=== PATIENT | male | born 1980 | race Two or more races ===

== ENCOUNTER 2017-07-21 00:42 | Emergency (ER) | payer SELFPAY ==
[2017-07-21] MEDS: diphenhydrAMINE HCL 25 MG CAPSULE PO (01:19)
[2017-07-21] MEDS: DEXAMETHASONE SOD PHOS 4 MG/ML VIAL IM (01:19)
== END 2017-07-21 01:37 | disposition home or self-care (01) ==
LOC: ER 00:42
DX: L23.7 Allergic contact dermatitis due to plants, except food (principal)
CPT/HCPCS: 96372; 99283; J1100; Q0163

== ENCOUNTER 2018-07-07 19:40 | Emergency (ER) | payer OTHER, BC ==
[~2018-07-07] VITALS: Ht 167.6 cm; Wt 90.7 kg
[~2018-07-07 19:40] MED LIST: PRED20TA PO
[2018-07-07 20:10] VITALS: BP 151/103
--- NOTE | 2018-07-07 21:39 | PHYS DOC ---
Past Medical History Past Medical History: Other Additional Past Medical Histor: SLEEP APNEA Past Surgical History: No Surgical History Additional Information: non smoker Alcohol Use: None Drug Use: None Adult General Chief Complaint Chief Complaint: SHOULDER INJURY HPI HPI Patient is a 38-year-old male who presents with right humerus and shoulder pain for 2 days. Patient states that he has not had any trauma to the arm. Patient denies any associated symptoms. The patient states his pain is 10 out of 10 and throbs and has sharp pain. Patient has tried Tylenol at home but it is not working. Review of Systems Review of Systems Constitutional: Denies fever or chills [] Eyes: Denies change in visual acuity, redness, or eye pain [] HENT: Denies nasal congestion or sore throat [] Respiratory: Denies cough or shortness of breath [] Cardiovascular: No additional information not addressed in HPI [] GI: Denies abdominal pain, nausea, vomiting, bloody stools or diarrhea [] : Denies dysuria or hematuria [] Musculoskeletal: Denies back pain. Reports shoulder pain and R upper arm pain. Integument: Denies rash or skin lesions [] Neurologic: Denies headache, focal weakness or sensory changes [] Endocrine: Denies polyuria or polydipsia [] Complete systems were reviewed and found to be within normal limits, except as documented in this note. Current Medications Current Medications Current Medications Medications (Trade) Dose Ordered Sig/[facility] Start Time Stop Time Status Last Admin Dose Admin Ketorolac Tromethamine (Toradol 30mg Vial) 30 mg 1X ONCE 07/07/18 21:45 07/07/18 21:46 DC 07/07/18 22:14 30 MG Allergies Allergies Allergies Coded Allergies Type Severity Reaction Last Updated Verified No Known Drug Allergies 07/21/17 No Physical Exam Physical Exam Constitutional: Well developed, well nourished, no acute distress, non-toxic appearance. [] HENT: Normocephalic, atraumatic, bilateral external ears normal, oropharynx moist, no oral exudates, nose normal. [] Eyes: PERRLA, EOMI, conjunctiva normal, no discharge. [] Neck: Normal range of motion, no tenderness, supple, no stridor. [] Cardiovascular:Heart rate regular rhythm, no murmur [] Lungs & Thorax: Bilateral breath sounds clear to auscultation [] Abdomen: Bowel sounds normal, soft, no tenderness, no masses, no pulsatile masses. [] Skin: Warm, dry, no erythema, no rash. [] Back: No tenderness, no CVA tenderness. [] Extremities: Tenderness to R humerus, no cyanosis, no clubbing, ROM reduced in R shoulder, no edema. [] Neurologic: Alert and oriented X 3, normal motor function, normal sensory function, no focal deficits noted. [] Psychologic: Affect normal, judgement normal, mood normal. [] Current Patient Data Vital Signs Vital Signs Date Time Temp Pulse Resp B/P (MAP) Pulse Ox O2 Delivery O2 Flow Rate FiO2 07/07/18 20:10 98.4 93 20 151/103 (119) 97 Room Air 98.4 EKG EKG [] Radiology/Procedures Radiology/Procedures []PATIENT: AALIYAH VILLARREAL DACCOUNT: [id number]#: [id number] : 1980 LOCATION: ER AGE: 38 SEX: M EXAM STATUS: REG ER ORD. PHYSICIAN: TONY LR APRN REASON: shoulder pain, reduced rom PROCEDURE: HUMERUS LEFT EXAM: Left humerus, 2 views. HISTORY: Pain. COMPARISON: None. FINDINGS: 2 views of the left humerus are obtained. There is no fracture, dislocation or subluxation. There is benign curvilinear sclerosis within the distal humeral metaphysis. There is minimal degenerative change involving the acromioclavicular joint and slight acromioclavicular joint vacuum phenomenon. IMPRESSION: No acute osseous finding. Electronically signed by: Moni Gonzales MD (07/07/2018 9:57 PM) [facility] PATIENT: AALIYAH VILLARREAL ACCOUNT: [id number] : 1980 LOCATION: ER AGE: 38 SEX: M EXAM STATUS: REG ER ORD. PHYSICIAN: TONY LR APRN REASON: shoulder pain, reduced rom PROCEDURE: SHOULDER 2+V LEFT EXAM: Left shoulder, 3 views. HISTORY: Pain. COMPARISON: None. FINDINGS: 3 views of the left shoulder obtained. There is no fracture, dislocation or subluxation. 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 IMPRESSION: No acute osseous finding. Electronically signed by: Moni Gonzales MD (07/07/2018 9:56 PM) [facility] Course & Med Decision Making Course & Med Decision Making Pertinent Labs and Imaging studies reviewed. (See chart for details) Discussed plan of care with patient. Will get x-ray and pain medication. Patient is agreeable. X-rays are negative. Will discharge home to follow up with ortho. Alexander Disclaimer Dragon Disclaimer This electronic medical record was generated, in whole or in part, using a voice recognition dictation system. Departure Departure Impression: Primary Impression: Shoulder pain, acute Disposition: 01 HOME, SELF-CARE Condition: STABLE Referrals: UNKNOWN PCP NAME (PCP) LIZETTE NEWTON II, MD Additional Instructions: If pain continues please follow up with orthopedics for further workup. Problem Qualifiers Primary Impression: Shoulder pain, acute Laterality: right Qualified Codes: M25.511 - Pain in right shoulder TONY LR APRN July 07, 2018 21:39
[2018-07-07] MEDS ORDERED: KETOROLAC 30 MG/ML VIAL. IM ONE (21:45)
--- NOTE | 2018-07-07 22:00 | RAD ---
EXAM: Left shoulder, 3 views. HISTORY: Pain. COMPARISON: None. FINDINGS: 3 views of the left shoulder obtained. There is no fracture, dislocation or subluxation. 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 IMPRESSION: No acute osseous finding. Electronically signed by: Moni Gonzales MD (07/07/2018 9:56 PM) [facility]
--- NOTE | 2018-07-07 22:00 | RAD ---
EXAM: Left humerus, 2 views. HISTORY: Pain. COMPARISON: None. FINDINGS: 2 views of the left humerus are obtained. There is no fracture, dislocation or subluxation. There is benign curvilinear sclerosis within the distal humeral metaphysis. There is minimal degenerative change involving the acromioclavicular joint and slight acromioclavicular joint vacuum phenomenon. IMPRESSION: No acute osseous finding. Electronically signed by: Moni Gonzales MD (07/07/2018 9:57 PM) [facility]
== END 2018-07-07 22:59 | disposition home or self-care (01) ==
LOC: ER 19:40
DX: M25.511 Pain in right shoulder (principal)
CPT/HCPCS: 73030; 73060; 96372; 99284; J1885

== ENCOUNTER 2019-02-26 03:19 | Emergency (ER) | payer BC, OTHER ==
[~2019-02-26] VITALS: Ht 167.6 cm; Wt 93.0 kg
[2019-02-26 03:38] VITALS: BP 134/90
--- NOTE | 2019-02-26 04:14 | PHYS DOC ---
Past Medical History Past Medical History: Other Additional Past Medical Histor: SLEEP APNEA Past Surgical History: Other Additional Past Surgical Histo: Nasal Surgery Alcohol Use: None Drug Use: None Adult General Chief Complaint Chief Complaint: DENTAL PROBLEM [facility] HPI 39-year-old male presents to the emergency department with complaints of toothache. Patient states he went to the dentist 1 week ago received a deep cleaning. He states no fever, nausea, vomiting, diarrhea however was increasing pain in his mouth today. He has an appointment with dentist today. Patient should states this is however not until 5:30 PM. Nothing makes his symptoms worse, nothing makes his symptoms better. Patients tried [id number]-[id number] medications without improvement. All other ROS negative unless documented in HPI Review of Systems Review of Systems See Above Current Medications Current Medications Current Medications Medications (Trade) Dose Ordered Sig/Jacqui Start Time Stop Time Status Last Admin Dose Admin Bupivacaine HCl (Sensorcaine Mpf 0.5%) 30 ml 1X ONCE 02/26/19 04:15 02/26/19 04:16 02/26/19 04:06 30 ML Tramadol HCl (Ultram) 50 mg 1X ONCE 02/26/19 04:15 02/26/19 04:16 02/26/19 04:11 50 MG Allergies Allergies Allergies Coded Allergies Type Severity Reaction Last Updated Verified No Known Drug Allergies 07/21/17 No Physical Exam Physical Exam See Above Constitutional: Well developed, well nourished, no acute distress, non-toxic appearance. [] HENT: Normocephalic, atraumatic, bilateral external ears normal, oropharynx moist, no oral exudates, nose normal. Gingiva evaluated without evidence of acute infection, pain appreciated to posterior molar upper/lower[] Eyes: PERRLA, EOMI, conjunctiva normal, no discharge. [] Neck: Normal range of motion, no tenderness, supple, no stridor. [] Cardiovascular:Heart rate regular rhythm, no murmur [] Skin: Warm, dry, no erythema, no rash. [] Extremities: No tenderness, no edema. [] Neurologic: Alert and oriented X 3, no focal deficits noted. [] Psychologic: Affect normal, judgement normal, mood normal. [] Current Patient Data Vital Signs Vital Signs Date Time Temp Pulse Resp B/P (MAP) Pulse Ox O2 Delivery O2 Flow Rate FiO2 02/26/19 04:11 Room Air 02/26/19 03:38 98.3 109 17 134/90 (105) 97 98.3 EKG EKG [] Radiology/Procedures Radiology/Procedures [] Course & Med Decision Making Course & Med Decision Making Pertinent Labs and Imaging studies reviewed. (See chart for details) []39-year-old male presents to the emergency department with complaints of toothache. Patient states he went to the dentist 1 week ago received a deep cleaning. He states no fever, nausea, vomiting, diarrhea however was increasing pain in his mouth today. He has an appointment with dentist today. Patient should states this is however not until 5:30 PM. Nothing makes his symptoms worse, nothing makes his symptoms better. Patients tried bxso-rwr-xeiqxvx medications without improvement. 4 cc of bupivicaine used for dental block of superior/inferior alveolar nerve block Tramadol po x 1 Recommend follow up with PCP/Dentist as scheduled today Return precautions provided No evidence of acute infection appreciated Dragon Disclaimer Dragon Disclaimer This electronic medical record was generated, in whole or in part, using a voice recognition dictation system. Departure Departure Impression: Primary Impression: Pain, dental Disposition: 01 HOME, SELF-CARE Condition: IMPROVED Referrals: SHRUTHI WALTER MD (PCP) Patient Instructions: Dental Pain, [id number] Additional Instructions: Recommend follow up with PCP 3 - 5 days Return to the ER with worsening symptoms, intractable pain, fever, altered mental status Tylenol/Motrin as needed for pain Recommend following up with Dentist today Tramadol 50mg PO x 1 given in ER for pain SUNNY PARKS MD Feb 26, 2019 04:13
[2019-02-26] MEDS ORDERED: BUPIVACAINE MPF 0.5% 30 ML VIAL. INJ ONE (04:15)
[2019-02-26] MEDS ORDERED: traMADol 50 MG TABLET PO ONE (04:15)
== END 2019-02-26 04:20 | disposition home or self-care (01) ==
LOC: ER 03:19
DX: K08.89 Other specified disorders of teeth and supporting structures (principal)
CPT/HCPCS: 64400; 99284; J3490

== ENCOUNTER 2020-07-11 17:26 | Emergency (ER) | payer BC, MEDICAID ==
[~2020-07-11] VITALS: Ht 167.6 cm; Wt 102.2 kg
[2020-07-11 17:58] VITALS: BP 142/84
[2020-07-11] MEDS ORDERED: predniSONE 10 MG TABLET PO ONE (19:15)
[2020-07-11] MEDS ORDERED: PRED20TA PO (19:27)
[2020-07-11] MEDS ORDERED: CLOT15CR23 TP (19:27)
--- NOTE | 2020-07-11 19:27 | ED.ADGEN ---
Past Medical History Past Medical History: Other Additional Past Medical Histor: SLEEP APNEA Past Surgical History: Other Additional Past Surgical Histo: Nasal Surgery Smoking Status: Current Every Day Smoker Additional Information: 0.5 PPD Alcohol Use: Rarely Drug Use: None General Adult EDM: Chief Complaint: SKIN PROBLEM HPI: HPI: Patient is a 40 year old male, who presents emergency department with complaints of a red, itchy, rash to both of his arms, his neck, and spreading to his face for last 2 days. Patient denies any known cause. He denies any fever, cough, shortness of breath, nausea, vomiting, diarrhea, abdominal pain, chest pain, sore throat, or wheezing. Patient denies any new medications, detergents, environmental exposures, or foods. Patient states he does have a indoor/outdoor cat that does come in and out of the house frequently. He currently denies any pain. Patient reports he has tried applying calamine lotion with little relief. He also complains of a rash in his left groin that has been there for several weeks but denies any complaints with that. Review of Systems: Review of Systems: Complete ROS is negative unless otherwise noted in HPI. Current Medications: Current Medications Medications (Trade) Dose Ordered Sig/[facility] Start Time Stop Time Status Last Admin Dose Admin Prednisone (Prednisone) 50 mg 1X ONCE 07/11/20 19:15 07/11/20 19:16 DC 07/11/20 19:20 50 MG Allergies: Allergies: Allergies Coded Allergies Type Severity Reaction Last Updated Verified No Known Drug Allergies 07/21/17 No Physical Exam: PE: See Above Constitutional: Well developed, well nourished, no acute distress, non-toxic appearance. [] HENT: Normocephalic, atraumatic, bilateral external ears normal, nose normal. [] Eyes: PERRLA, EOMI, conjunctiva normal, no discharge. [] Neck: Normal range of motion, no stridor. [] Cardiovascular:Heart rate regular rhythm Lungs & Thorax: Respirations even and unlabored, no retractions, no respiratory distress Skin: Warm, dry; erythemic, maculopapular rash to bilateral arms, chest, and left side of face concerning for allergic contact dermatitis; red, scaly, mildly raised rash to left groin concerning for tinea cruius Extremities: No cyanosis, ROM intact, no edema. [] Neurologic: Alert and oriented X 3, no focal deficits noted. [] Psychologic: Affect normal, judgement normal, mood normal. [] Current Patient Data: Vital Signs: Vital Signs Date Time Temp Pulse Resp B/P (MAP) Pulse Ox O2 Delivery O2 Flow Rate FiO2 07/11/20 17:58 98.3 98 19 142/84 (103) 96 Room Air 98.3 EKG: EKG: [] Heart Score: C/O Chest Pain: No Risk Scores: Score 0 - 3: 2.5% MACE over next 6 weeks - Discharge Home Score 4 - 6: 20.3% MACE over next 6 weeks - Admit for Clinical Observation Score 7 - 10: 72.7% MACE over next 6 weeks - Early Invasive Strategies Radiology/Procedures: Radiology/Procedures: [] Course & Med Decision Making: Course & Med Decision Making I oversaw on the above date of service of this patient and discussed the care with the CPO. I agree with the findings, plan of care, and disposition as documented. Electronically signed, DO Alexander Lockwood Disclaimer: Alexander Disclaimer: This electronic medical record was generated, in whole or in part, using a voice recognition dictation system. Departure Departure Impression: Primary Impression: Contact dermatitis Additional Impression: Tinea cruris Disposition: HOME / SELF CARE / HOMELESS Condition: STABLE Referrals: SHRUTHI WALTER MD (PCP) Patient Instructions: Contact Dermatitis, Sxvc-ao-Lirp, Jock Itch, [id number]-Mbkc Additional Instructions: Fill the prescriptions use them as directed. Follow-up with your primary care doctor in the next 1 to 2 days, return to the ER symptoms worsen. Scripts Clotrimazole (CLOTRIMAZOLE) 15 Gm Cream..g. 1 PHILIP TP BID for 28 Days, #45 GM 0 Refills Prov: ALENA LYNCH APRN 07/11/20 Prednisone (PREDNISONE) 20 Mg Tablet 1 TAB PO UD for 12 Days, #15 TAB 2 tabs by mouth days 1,2,3 then 1.5 tabs by mouth days 4,5,6 then 1 tab by mouth days 7,8,9 then 0.5 tab by mouth day 10,11,12 Prov: ALENA LYNCH APRN 07/11/20 Problem Qualifiers Primary Impression: Contact dermatitis Contact dermatitis type: unspecified Contact dermatitis trigger: unspecified trigger Qualified Codes: L25.9 - Unspecified contact dermatitis, unspecified cause ALENA LYNCH APRN July 11, 2020 19:27 VANESA NAIK DO July 15, 2020 04:26
== END 2020-07-11 19:44 | disposition home or self-care (01) ==
LOC: ER 17:26
DX: L25.9 Unspecified contact dermatitis, unspecified cause (principal); B35.6 Tinea cruris; F17.200 Nicotine dependence, unspecified, uncomplicated
CPT/HCPCS: 99283; J7512

== ENCOUNTER 2020-08-14 15:40 | Emergency (ER) | payer MEDICAID ==
[~2020-08-14] VITALS: Ht 167.6 cm; Wt 100.0 kg
[~2020-08-14 15:40] MED LIST changes: +CLOT15CR23 TP
[2020-08-14 15:48] VITALS: BP 153/85
--- NOTE | 2020-08-14 15:54 | PHYS DOC ---
Past Medical History Past Medical History: Other Additional Past Medical Histor: SLEEP APNEA Past Surgical History: Other Additional Past Surgical Histo: Nasal Surgery Smoking Status: Current Every Day Smoker Alcohol Use: Rarely Drug Use: None General Adult EDM: Chief Complaint: ABSCESS HPI: HPI: Patient is a 40 year old male patient with no significant medical history who presents to the ED today complaining of right elbow swelling for 2 to 3 weeks. Patient denies any injuries. Denies any pain. States the swelling had gone down in the beginning then returned. Review of Systems: Review of Systems: Constitutional: Denies fever or chills. [] Musculoskeletal: Reports right elbow swelling Integument: Denies rash. [] Neurologic: Denies headache, focal weakness or sensory changes. [] Psychiatric: Denies depression or anxiety. [] Heart Score: C/O Chest Pain: N/A Risk Factors: Risk Factors: DM, Current or recent (<one month) smoker, HTN, HLP, family histo ry of CAD, obesity. Risk Scores: Score 0 - 3: 2.5% MACE over next 6 weeks - Discharge Home Score 4 - 6: 20.3% MACE over next 6 weeks - Admit for Clinical Observation Score 7 - 10: 72.7% MACE over next 6 weeks - Early Invasive Strategies Allergies: Allergies: Allergies Coded Allergies Type Severity Reaction Last Updated Verified No Known Drug Allergies 07/21/17 No Physical Exam: PE: Constitutional: Well developed, well nourished, no acute distress, non-toxic appearance. [] Skin: Warm, dry, no erythema, no rash. [] Back: No tenderness, no CVA tenderness. [] Extremities: Right elbow with no obvious deformity, there is small amount of swelling on the right elbow olecranon process. The area does not appear infected, no redness, no warmth. No tenderness on exam. Full range of motion to the right elbow including flexion and extension of the elbow. Adequate sensation to the right upper extremity. +2 right radial pulse. Neurologic: Alert and oriented X 3, normal motor function, normal sensory function, no focal deficits noted. [] Psychologic: Affect normal, judgement normal, mood normal. [] EKG: EKG: [] Radiology/Procedures: Radiology/Procedures: []PROCEDURE: ELBOW RIGHT 3V XR ELBOW COMPLETE_RIGHT 3+ VIEWS 08/14/2020 4:08 PM INDICATION: Swelling COMPARISON: None available. TECHNIQUE: 3 views of the right elbow are provided. FINDINGS/ IMPRESSION: There is no acute fracture or dislocation. Joint spaces are maintained. Bone mineralization is within normal limits. Soft tissue swelling is identified along the olecranon. There is no soft tissue gas or osseous erosion. No radiopaque foreign body. No significant elbow joint effusion. Electronically signed by: Katheryn Anne MD (08/14/2020 4:19 PM) [facility] DICTATED and SIGNED BY: KATEHRYN ANNE MD DATE: 08/14/20 [id number] 0 Course & Med Decision Making: Course & Med Decision Making Pertinent Labs and Imaging studies reviewed. (See chart for details) This is a 40-year-old male patient presented to the ED today with right elbow swelling for 2 to 3 weeks, no known injury. The area does not appear infected. Tetanus is up-to-date. Right elbow x-rays interpreted by radiologist are negative. Kevin bandage applied to the elbow. Ice elevation encouraged. Follow- up with orthopedic doctor. NSAIDs recommended. Dragon Disclaimer: Dragon Disclaimer: This electronic medical record was generated, in whole or in part, using a voice recognition dictation system. Departure Departure Impression: Primary Impression: Bursitis Qualified Codes: M70.21 - Olecranon bursitis, right elbow Disposition: HOME / SELF CARE / HOMELESS Condition: STABLE Referrals: SHRUTHI WALTER MD (PCP) DANNY WATERMAN MD follow up in one week Patient Instructions: Bursitis, Idia-wu-Qrni Additional Instructions: You were seen for right elbow swelling, this looks like bursitis, your right elbow x-rays were negative for any acute findings. Wrap the elbow with an Kevin bandage as tolerated. Try to ice and elevate the elbow. Take ibuprofen or naproxen as needed for pain. Please follow-up with the provided orthopedic doctor in 1 week Scripts Naproxen (NAPROXEN) 500 Mg Tablet 1 TAB PO BID for pain, #20 TAB 0 Refills Prov: ALBA AGUILAR APRN 08/14/20 ALBA AGUILAR APRN Aug 14, 2020 15:54
--- NOTE | 2020-08-14 16:21 | RAD ---
XR ELBOW COMPLETE_RIGHT 3+ VIEWS 08/14/2020 4:08 PM INDICATION: Swelling COMPARISON: None available. TECHNIQUE: 3 views of the right elbow are provided. FINDINGS/ IMPRESSION: There is no acute fracture or dislocation. Joint spaces are maintained. Bone mineralization is within normal limits. Soft tissue swelling is identified along the olecranon. There is no soft tissue gas o r osseous erosion. No radiopaque foreign body. No significant elbow joint effusion. Electronically signed by: Kinjal Covarrubias MD (08/14/2020 4:19 PM) [facility]
[2020-08-14] MEDS ORDERED: NAPR-514 PO (16:30)
== END 2020-08-14 16:48 | disposition home or self-care (01) ==
LOC: ER 15:40
DX: M70.21 Olecranon bursitis, right elbow (principal); F17.200 Nicotine dependence, unspecified, uncomplicated
CPT/HCPCS: 73080; 99283